=== PATIENT | male | born 1960 | race Asian ===

== ENCOUNTER 2016-11-29 17:10 | Emergency (ER) | payer OTHER ==
[~2016-11-29] VITALS: Ht 177.8 cm; Wt 72.6 kg
[2016-11-29 17:24] VITALS: BP 140/80
[2016-11-29] MEDS: Mylanta II UD 30ml ORAL ONE ×2 (17:31→17:37)
[2016-11-29] MEDS: Lidocaine 2% Visc 15ml soln ORAL ONE ×2 (17:31→17:37)
--- NOTE | 2016-11-29 17:31 | Emergency Room Report ---
History of Present Illness General Chief Complaint: Chest Pain Source: Patient, EMS Present Illness HPI This patient states that for the past day he has had lower mid chest pain and epigastric pain. He states that he has also had nausea. He states that at this time he does not really have pain and is more of a discomfort sensation. He has not had any vomiting. He denies fever chills. He denies shortness of breath. He states that his symptoms have been constant. Prior to arrival he received aspirin and nitroglycerin in route and had no relief of his symptoms. He has no other complaints. Allergies: Coded Allergies: No Known Allergies (Unverified , 11/29/16) Patient History Past Medical History: see triage record, DM, GERD Social History: Denies: alcohol use, drug use, smoking Reviewed Nursing Documentation: PMH: Agreed, PSxH: Agreed Nursing Documentation-PMH Past Medical History: No History, Except For Hx Diabetes: Yes History Of Psychiatric Problem: Yes - Depression Review of Systems All Other Systems: negative except mentioned in HPI Physical Exam Vital Signs Date Time Temp Pulse Resp B/P Pulse Ox O2 Delivery O2 Flow Rate FiO2 11/29/16 17:01 98.1 102 14 126/87 99 Room Air Sp02 EP Interpretation: reviewed, normal General Appearance: no apparent distress, alert, GCS 15, non-toxic Head: normocephalic, atraumatic Eyes: bilateral eye PERRL, bilateral eye normal inspection ENT: hearing grossly normal, normal pharynx, no angioedema, normal voice Neck: full range of motion, supple/symm/no masses Respiratory: chest non-tender, lungs clear, normal breath sounds, speaking full sentences Cardiovascular #1: regular rate, rhythm, no edema Gastrointestinal: normal bowel sounds, non tender, soft, non-distended, no guarding, no rebound Rectal: deferred Musculoskeletal: back normal, gait/station normal, normal range of motion, non- tender Neurologic: alert, oriented x3, responsive, motor strength/tone normal, sensory intact, speech normal Psychiatric: judgement/insight normal, memory normal, mood/affect normal, no suicidal/homicidal ideation Skin: normal color, no rash, warm/dry, well hydrated Medical Decision Making Diagnostic Impression: Primary Impression: Chest pain ER Course This patient has nonspecific chest pain. Given the length of symptoms, this workup is very reassuring with negative cardiac enzymes, normal EKG, and normal chest x-ray. The patient is low risk and his symptoms are atypical for acute coronary syndrome. I have very low suspicion for PE, aortic dissection or pneumothorax based on history/physical, laboratory and radiologic workup. The patient was given close return precautions and followup instructions. Labs Test 11/29/16 17:14 11/29/16 17:21 Prothrombin Time 9.7 SEC (9.30-11.50) Prothromb Time International Ratio 0.9 (0.9-1.1) Activated Partial Thromboplast Time 25 SEC (23-33) Urine Color Pale yellow Urine Appearance Clear Urine pH 8 (4.5-8.0) Urine Specific Unity 1.010 (1.005-1.035) Urine Protein Negative (NEGATIVE) Urine Glucose (UA) Negative (NEGATIVE) Urine Ketones Negative (NEGATIVE) Urine Occult Blood Negative (NEGATIVE) Urine Nitrite Negative (NEGATIVE) Urine Bilirubin Negative (NEGATIVE) Urine Urobilinogen Normal MG/DL (0.0-1.0) Urine Leukocyte Esterase Negative (NEGATIVE) Sodium Level 142 mEQ/L (135-145) Potassium Level 4.1 mEQ/L (3.4-4.9) Chloride Level 102 mEQ/L (98-107) Carbon Dioxide Level 29 mEQ/L (20-30) Anion Gap 11 (5-15) Blood Urea Nitrogen 15 mg/dL (7-23) Creatinine 1.0 mg/dL (0.7-1.2) Estimat Glomerular Filtration Rate > 60 mL/min (>60) Glucose Level 117 mg/dL (74-106) Calcium Level 9.0 mg/dL (8.6-10.2) Total Bilirubin 0.3 mg/dL (0.0-1.2) Aspartate Amino Transf (AST/SGOT) 17 U/L (5-40) Alanine Aminotransferase (ALT/SGPT) 19 U/L (3-41) Alkaline Phosphatase 41 U/L (40-129) Total Creatine Kinase 80 U/L (38-174) Creatine Kinase MB < 1.5 ng/mL (< 6.7) Creatine Kinase MB Relative Index Troponin I < 0.30 ng/mL (<=0.30) Total Protein 6.9 g/dL (6.6-8.7) Albumin 4.3 g/dL (3.5-5.2) Globulin 2.6 g/dL Albumin/Globulin Ratio 1.6 (1.0-2.7) Urine Opiates Screen Negative (NEGATIVE) Urine Barbiturates Screen Negative (NEGATIVE) Phencyclidine (PCP) Screen Negative (NEGATIVE) Urine Amphetamines Screen Negative (NEGATIVE) Urine Benzodiazepines Screen Negative (NEGATIVE) Urine Cocaine Screen Negative (NEGATIVE) Urine Marijuana (THC) Screen Negative (NEGATIVE) White Blood Count 7.6 K/UL (4.8-10.8) Red Blood Count 4.28 M/UL (4.70-6.10) Hemoglobin 13.9 G/DL (14.2-18.0) Hematocrit 41.2 % (42.0-52.0) Mean Corpuscular Volume 96 FL (80-99) Mean Corpuscular Hemoglobin 32.4 PG (27.0-31.0) Mean Corpuscular Hemoglobin Concent 33.7 G/DL (32.0-36.0) Red Cell Distribution Width 12.0 % (11.6-14.8) Platelet Count 190 K/UL (150-450) Mean Platelet Volume 6.8 FL (6.5-10.1) Neutrophils (%) (Auto) 67.6 % (45.0-75.0) Lymphocytes (%) (Auto) 24.1 % (20.0-45.0) Monocytes (%) (Auto) 6.2 % (1.0-10.0) Eosinophils (%) (Auto) 1.0 % (0.0-3.0) Basophils (%) (Auto) 1.1 % (0.0-2.0) EKG Diagnostic Results Rate: normal Rhythm: NSR ST Segments: no acute changes Other Impression IRBBB Rhythm Strip Diag. Results EP Interpretation: yes Rate: 90's Rhythm: NSR, no PVC's, no ectopy Chest X-Ray Diagnostic Results Chest X-Ray Diagnostic Results : Chest X-Ray Ordered: Yes # of Views/Limited/Complete: 1 View Indication: Chest Pain EP Interpretation: Yes Interpretation: no consolidation, no effusion, no pneumothorax, no acute cardiopulmonary disease Impression: No acute disease Interpreting ER Provider: Ashley Last Vital Signs Date Time Temp Pulse Resp B/P Pulse Ox O2 Delivery O2 Flow Rate FiO2 11/29/16 17:24 98.1 100 18 140/80 100 Room Air Disposition: HOME, SELF-CARE Condition: Improved Patient Instructions: Nonspecific Chest Pain EMERITA HELTON D.O. Nov 29, 2016 17:31
[2016-11-29 17:47] LABS: APPEARANCE,URINE CLEAR; KETONES,URINE NEGATIVE (NEGATIVE); LEUKOCYTE ESTERASE ,URINE NEGATIVE (NEGATIVE); NITRITE,URINE NEGATIVE (NEGATIVE); PH,URINE 8 (4.5-8.0); PROTEIN,URINE NEGATIVE (NEGATIVE); UROBILINOGEN,URINE NORMAL MG/DL (0.0-1.0)
[2016-11-29 17:48] LABS: BASOPHILS % (AUTO) 1.1 % (0.0-2.0); LYMPHOCYTES % (AUTO) 24.1 % (20.0-45.0); MEAN CORPUSCULAR HEMOGLOBIN 32.4 PG (27.0-31.0); MEAN CORPUSCULAR HGB CONC 33.7 G/DL (32.0-36.0); MEAN CORPUSCULAR VOLUME 96 FL (80-99); MEAN PLATELET VOLUME 6.8 FL (6.5-10.1); MONOCYTES % (AUTO) 6.2 % (1.0-10.0); NEUTROPHILS % (AUTO) 67.6 % (45.0-75.0); PLATELET COUNT 190 K/UL (150-450); RED BLOOD COUNT 4.28 M/UL (4.70-6.10); WHITE BLOOD COUNT 7.6 K/UL (4.8-10.8)
[2016-11-29 17:58] LABS: INR 0.9 (0.9-1.1); PROTHROMBIN TIME 9.7 SEC (9.30-11.50)
[2016-11-29 18:09] LABS: TROPONIN I < 0.30 ng/mL (<=0.30)
[2016-11-29 18:13] LABS: ALANINE AMINOTRANSFERASE 19 U/L (3-41); ALBUMIN/GLOBULIN RATIO 1.6 (1.0-2.7); ANION GAP 11 (5-15); ASPARTATE AMINO TRANSFERASE 17 U/L (5-40); CARBON DIOXIDE 29 mEQ/L (20-30); CHLORIDE 102 mEQ/L (98-107); GLOMERULAR FILTRATION RATE > 60 mL/min (>60); HEMOLYSIS 9; POTASSIUM 4.1 mEQ/L (3.4-4.9); SODIUM 142 mEQ/L (135-145); TOTAL PROTEIN 6.9 g/dL (6.6-8.7)
[2016-11-29 18:23] LABS: CKMB < 1.5 ng/mL (< 6.7)
[2016-11-29 18:59] VITALS: BP 123/78
[2016-11-29 19:20] VITALS: BP 126/76
[2016-11-29 19:36] VITALS: BP 126/76
--- NOTE | 2016-11-30 09:21 | Diagnostic Imaging Report ---
Indication: Chest pain Technique: One view of the chest Comparison: none Findings: Lungs and pleural spaces are clear. Heart size is normal Impression: No acute process
--- NOTE | 2016-12-02 18:19 | Cardiology Report ---
APPROVED REPORT EKG Measurement Heart [id number] Normal sinus rhythm Incomplete right bundle branch block Borderline ECG
== END 2016-11-29 19:30 | disposition home or self-care (01) ==
LOC: EDBD 17:10 → EMR 18:45
DX: R07.9 Chest pain, unspecified (principal); R10.13 Epigastric pain; E11.9 Type 2 diabetes mellitus without complications; K21.9 Gastro-esophageal reflux disease without esophagitis; R11.2 Nausea with vomiting, unspecified
CPT/HCPCS: 36415; 71010; 80053; 80300; 81003; 82550; 82553; 84484; 85025; 85610; 85730; 93005; 96374